=== PATIENT | female | born 1950 | race Caucasian/White ===

== ENCOUNTER 2021-05-06 13:27 | Emergency (ER) | payer OTHER, MEDICARE, BC ==
[~2021-05-06] VITALS: Ht 152.4 cm; Wt 75.0 kg
[2021-05-06 13:32] VITALS: BP 123/54
--- NOTE | 2021-05-06 15:02 | NUR ---
[employer] DEVELOP[employer] COORDINATOR CALLED, IN ROUTE
== END 2021-05-06 15:49 | disposition home or self-care (01) ==
LOC: ER 13:27
DX: S52.124A Nondisplaced fracture of head of right radius, initial encounter for closed fracture (principal); S80.01XA Contusion of right knee, initial encounter; S80.02XA Contusion of left knee, initial encounter; M25.531 Pain in right wrist; W19.XXXA Unspecified fall, initial encounter; W01.0XXA Fall on same level from slipping, tripping and stumbling without subsequent striking against object, initial encounter; Y93.89 Activity, other specified; Y92.89 Other specified places as the place of occurrence of the external cause; Y99.8 Other external cause status
CPT/HCPCS: 29105; 73080; 99283

== ENCOUNTER 2022-06-22 18:47 | Emergency (ER) | payer MEDICARE, BC ==
[~2022-06-22] VITALS: Ht 152.4 cm; Wt 77.3 kg
[2022-06-22 18:52] VITALS: BP 185/95
[2022-06-22] MEDS ORDERED: acetaminophen 325mg tablet PO ONE (19:30)
== END 2022-06-22 20:44 | disposition home or self-care (01) ==
LOC: ER 18:47
DX: S52.122A Displaced fracture of head of left radius, initial encounter for closed fracture (principal); M25.522 Pain in left elbow; S00.03XA Contusion of scalp, initial encounter; W18.39XA Other fall on same level, initial encounter; Y93.9 Activity, unspecified; Y92.89 Other specified places as the place of occurrence of the external cause; Y99.8 Other external cause status
CPT/HCPCS: 29105; 29515; 70450; 72125; 73080; 93005; 99284; A4565; A6449